=== PATIENT | female | born 1990 | race Caucasian/White ===

== ENCOUNTER → 2018-04-26 15:53 | Outpatient (CLI) | payer BC, SELFPAY ==
[2018-04-26 15:00] VITALS: BMI 29.0
[2018-04-26 17:28] LABS: Absolute Lymphocyte Count 1.35 X10^3/ul (0.83-4.51); Absolute Neutrophil Count 8.5 X10^3/uL (2.0-7.7); Basophil# 0.01 X10^3/uL; Basophil% 0.1 % (0-1); Eosinophil# 0.05 X10^3/uL; Eosinophils% 0.5 % (0-5); Hematocrit 34.6 % (37-47); Hemoglobin 11.5 g/dl (12.0-15.0); Lymphocyte # 1.35 X10^3/ul (4.0); Lymphocyte % 12.9 % (19-41); Mean Corp Hgb Conc 33.2 g/gl (32-36); Mean Corpuscular Hgb 32.8 pg (27.0-32.0); Mean Corpuscular Volume 98.6 fL (81-99); Mean Platelet Vol. 12.1 fl (6.2-12.0); Monocyte# 0.49 X10^3/uL; Monocyte% 4.7 % (0-10); Neutrophil # 8.52 X10^3/uL (2.7-7.7); Neutrophil % 81.3 % (47-70); Platelet Count 163 K/mm3 (150-450); RBC Distribution Width CV 12.2 % (11.6-14.6); RBC Distribution Width SD 41.2 fl (35.1-43.9); Red Blood Count 3.51 M/mm3 (4.2-5.4); White Blood Count 10.5 K/mm3 (4.4-11.0)
[2018-04-26 17:31] LABS: POSITIVE COUNT NO; POSITIVE DIFFERENTIAL NO; POSITIVE MORPHOLOGY NO
[2018-04-26 17:44] LABS: Glucose Challenge Gest 1H 50g 108 mg/dL (70-140)
== END ==
PROVIDERS: Referring Provider Obstetrics & Gynecology; Visit Provider Obstetrics & Gynecology
DX: Z34.90 Encounter for supervision of normal pregnancy, unspecified, unspecified trimester (principal)
CPT/HCPCS: 36415; 82950; 85025; 86850; 86900

== ENCOUNTER → 2018-07-03 15:41 | Outpatient (CLI) | payer BC, SELFPAY ==
[2018-06-28 15:05] VITALS: BMI 29.9
--- NOTE | 2018-07-03 15:46 | US_ITS ---
STUDY: SECOND AND THIRD TRIMESTER OBSTETRICAL ULTRASOUND - LIMITED REASON FOR EXAM: Female, 27 years old. dating. LMP: Unknown. PRIOR ULTRASOUND: None. TECHNIQUE: Transabdominal TECHNICAL QUALITY: Adequate. FINDINGS: There is a single intrauterine fetus. The fetus is in a cephalic presentation. There is demonstrated cardiac activity with a heart rate of 128 bpm. There is a normal amniotic fluid volume. The largest amniotic fluid pocket measures 3.2 cm. The amniotic fluid index (MATHEUS) is 13.9 cm. The placenta is anterior in location and is not low lying. There are Grade 2 placental changes. The cervix measures 2.5 cm in length. BIOMETRY: BPD: 8.9 cm: 36 weeks, 0 days HC: 32.9 cm: 37 weeks, 3 days AC: 31.8 cm: 35 weeks, 6 days FL: 7.2 cm: 37 weeks, 0 days age by current US: 36 weeks, 4 days. YESSENIA by current US: July 27, 2018. Estimated weight: 2888 grams, +/- 422 grams, 26 percentile. US/OB Limited With Biometrics IMPRESSION: Single intrauterine gestation 36 weeks 4 days with estimated due date July 27, 2018. Estimated weight 2888 g. Electronically Signed: Stefan Nelson MD at 18:11 EDT , Service support ,
== END ==
PROVIDERS: Referring Provider Obstetrics & Gynecology; Visit Provider Obstetrics & Gynecology
DX: O26.849 Uterine size-date discrepancy, unspecified trimester (principal); Z3A.00 Weeks of gestation of pregnancy not specified
CPT/HCPCS: 76816

== ENCOUNTER 2018-07-21 03:52 | Outpatient (CLI) | payer BC, SELFPAY ==
[2018-07-19 15:08] VITALS: BMI 29.9
[2018-07-21 05:00] VITALS: BMI 30.7
--- NOTE | 2018-07-21 21:28 | OB.TRI.PN ---
Progress Notes Date of Service: 07/21/18 Progress Note: co contractions 2 cm dilated no cervical cahnge fht 130 moderate variability reactive no decels cat I tracing. toco irregular a/p false labor reactive nst dc home
[2020-06-25 02:41] LABS: ROM Internal Control Test YES-OK TO RESULT pt. (Internal QC)
[2020-06-25 02:42] LABS: ROM Patient Test POSITIVE (Negative)
== END 2018-07-21 05:30 | disposition home or self-care (01) ==
LOC: WPOUT 04:22 → WP 04:23
PROVIDERS: Obstetrics & Gynecology; Referring Provider Obstetrics & Gynecology; Visit Provider Obstetrics & Gynecology
DX: O47.9 False labor, unspecified (principal); Z3A.00 Weeks of gestation of pregnancy not specified
CPT/HCPCS: 59025; 59050; 84112; 99218; G0378

== ENCOUNTER 2018-07-21 16:30 | Inpatient (IN) | payer BC, SELFPAY ==
[2018-07-21 05:00] VITALS: BMI 30.7
[2018-07-21] MEDS: Lactated Ringers 1,000 ML 50 ML IV ×2 (17:00→20:08)
[2018-07-21 17:01] VITALS: BMI 30.4
[2018-07-21 17:18] LABS: Absolute Lymphocyte Count 1.87 X10^3/ul (0.83-4.51); Absolute Neutrophil Count 11.4 X10^3/uL (2.0-7.7); Basophil# 0.02 X10^3/uL; Basophil% 0.1 % (0-1); Eosinophil# 0.07 X10^3/uL; Eosinophils% 0.5 % (0-5); Hematocrit 37.8 % (37-47); Hemoglobin 13.2 g/dl (12.0-15.0); Lymphocyte # 1.87 X10^3/ul (4.0); Mean Corp Hgb Conc 34.9 g/gl (32-36); Mean Corpuscular Hgb 32.5 pg (27.0-32.0); Mean Corpuscular Volume 93.1 fL (81-99); Mean Platelet Vol. 11.4 fl (6.2-12.0); Monocyte# 0.94 X10^3/uL; Monocyte% 6.6 % (0-10); Neutrophil # 11.38 X10^3/uL (2.7-7.7); Neutrophil % 79.4 % (47-70); Platelet Count 173 K/mm3 (150-450); RBC Distribution Width CV 12.9 % (11.6-14.6); RBC Distribution Width SD 43.4 fl (35.1-43.9); Red Blood Count 4.06 M/mm3 (4.2-5.4); White Blood Count 14.3 K/mm3 (4.4-11.0)
[2018-07-21 17:22] LABS: POSITIVE COUNT NO; POSITIVE DIFFERENTIAL NO; POSITIVE MORPHOLOGY NO
--- NOTE | 2018-07-21 17:46 | PCM.HP.OB ---
- Problem List (1) Active labor at term Status: Acute (2) GBS (group B streptococcus) UTI complicating Status: Acute Qualifiers: (3) Rh negative status during , third trimester, single gestation Status: Acute Comment: rhogam given at 28 weeks (4) Anxiety during Status: Acute Comment: no meds (5) Supervision of normal Status: Acute Qualifiers: Comment: PRR YESSENIA 07/20/18 girl PC Lara Fidel Scruggs (6) Status: Acute Qualifiers: Comment: Sequential screen negative. carrier screening offered. MFM Anatomy US normal. History Date of Admission: 07/21/18 Final YESSENIA: 07/20/18 Gestational age: 40 Weeks and 1 Days History of this : This is a 27 year-old, at 40 weeks gestational age presents IAL 5 cm dilated with regular ctx. she has been uncomplicated this . Allergies No Known Allergies Allergy (Verified 07/21/18 04:54) Home Medications: Home Medications docosahexanoic acid 200 mg capsule 200 mg PO DAILY cap 03/25/18 Smoking Status: Former smoker Alcohol: None Number of Fetus(es): 1 Heart Tracin moderate variability reactive no decelerations category I tracing [place]: regular History Past Pregnancies: Past Pregnancies previous term Labs: Mom's Labs & Results 07/21/18 07/21/18 17:00 17:00 WBC 14.3 H RBC 4.06 L Hgb 13.2 Hct 37.8 MCV 93.1 MCH 32.5 H MCHC 34.9 RDW 12.9 RDW Differential 43.4 Plt Count 173 MPV 11.4 Immature Gran % (Auto) 0.400 Neut % (Auto) 79.4 H Lymph % (Auto) 13.0 L [place] % (Auto) 6.6 Eos % (Auto) 0.5 Baso % (Auto) 0.1 Absolute Neuts (auto) 11.4 H Absolute Lymphs (auto) 1.87 Total Counted Not Reportable Blood Type Pending Antibody Screen Pending Course Did the patient receive Yes care? Labs Blood Type: A RH: NEGATIVE RPR/VDRL/Syphilis Nonreactive Rubella status Immune HbSAg Negative Date Done: 12/20/17 Chlamydia Not Done Gonorrhea Not Done HIV/AIDS Non-Reactive Group B Strep: Positive Other Lab Procedures/Results/ Gonorrhea and Chlamydia Comments: Current Obstetrical History Gestational Diabetes No Incompetent Cervix No Infertility No IUGR No Macrosomia No Hypertension/Pre-eclampsia No Placenta Previa/Abruption No PTL/PROM No Uterine anomaly No Oligohydramnios No Polyhydramnios No Multiple gestation No Past Medical History Asthma No Diabetes No Hypertension No Heart disease No Mitral valve prolapse Yes: Minor; Under observation Neurologic/Seizure disorder/ No Migraines Kidney disease No Liver disease No Varicosities No Clotting disorders/Hx of DVT No Thyroid Dysfunction No Other medical diseases No Psychiatric disorders Yes: Anxiety; untreated Major trauma No Abnormal PAP smear No Sleep apnea No Mammogram in the last 2 years No Social History Marital Status: Alleged father Fidel Hx Smoking No Smoking Status Former smoker Expected Delivery Method: Spontaneous Vaginal Review of Systems Constitutional: Denies: Fever, Malaise Eyes: Denies: Blurred vision, Vision Change HEENT: Denies: Head Aches, Visual Changes Cardiovascular: Denies: Chest Pain, Palpitations Respiratory: Denies: Cough, Shortness of Breath, Wheezing Gastrointestinal: Reports: Abdominal Pain. Denies: Diarrhea, Nausea, Vomiting Genitourinary: Denies: Dysuria, Hematuria Musculoskeletal: Denies: Joint Pain, Muscle pain Skin: Denies: Lesions, Rash Neurological: Denies: Blurred vision, Focal weakness, Headaches Psychiatric: Denies: Anxiety, Depression Endocrine: Denies: Heat/ Cold Intolerance Hematologic/ Lymphatic: Denies: Easy Bruising, Easy Bleeding Physical Exam General: Alert, Cooperative, No apparent distress HEENT: Atraumatic, Normocephalic. Negative for: Thyromegaly, Lymphadenopathy Cardiovascular: Regular rate Lungs: Normal air movement Abdomen: Soft, Non Tender, Gravid Neurological: Deep Tendon Reflexes 2+/4 and Symmetrical, Neuro grossly intact. Negative for: Clonus INS[employer]ANCE OPERATIONS REP: Normal external genitalia. Negative for: Vulvar lesions Estimated gestational size: Appropriate for gestational size Presentation: Cephalic Cervix Dilation (cm): 5 Assessment/Plan All Active Problems (Last Reviewed 07/19/18 @ 15:08 by Suzette Umana) Active labor at term (Acute) GBS (group B streptococcus) UTI complicating (Acute) Rh negative status during , third trimester, single gestation (Acute) Anxiety during (Acute) Supervision of normal (Acute) (Acute) This is a 27 year-old, at 40 weeks gestational age presents IAL Patient presents IAL, plan expectant management for , pitocin/AROM PRN if needed. Pain management: plans epidural. GBS positive plan IV PCN. Management of any complications: none I have reviewed the [facility] and made any clinically relevant updates.
--- NOTE | 2018-07-21 17:50 | HP.PCM_ITS ---
- Problem List (1) Active labor at term Status: Acute (2) GBS (group B streptococcus) UTI complicating Status: Acute Qualifiers: (3) Rh negative status during , third trimester, single gestation Status: Acute Comment: rhogam given at 28 weeks (4) Anxiety during Status: Acute Comment: no meds (5) Supervision of normal Status: Acute Qualifiers: Comment: PRR YESSENIA 07/20/18 girl PC Lara Fidel Scruggs (6) Status: Acute Qualifiers: Comment: Sequential screen negative. carrier screening offered. MFM Anatomy US normal. History Date of Admission: 07/21/18 Final YESSENIA: 07/20/18 Gestational age: 40 Weeks and 1 Days History of this : This is a 27 year-old, at 40 weeks gestational age presents IAL 5 cm dilated with regular ctx. she has been uncomplicated this . Allergies No Known Allergies Allergy (Verified 07/21/18 04:54) Home Medications: Home Medications docosahexanoic acid 200 mg capsule 200 mg PO DAILY cap 03/25/18 Smoking Status: Former smoker Alcohol: None Number of Fetus(es): 1 Heart Tracin moderate variability reactive no decelerations category I tracing [place]: regular History Past Pregnancies: Past Pregnancies previous term Labs: Mom's Labs & Results 07/21/18 07/21/18 17:00 17:00 WBC 14.3 H RBC 4.06 L Hgb 13.2 Hct 37.8 MCV 93.1 MCH 32.5 H MCHC 34.9 RDW 12.9 RDW Differential 43.4 Plt Count 173 MPV 11.4 Immature Gran % (Auto) 0.400 Neut % (Auto) 79.4 H Lymph % (Auto) 13.0 L [place] % (Auto) 6.6 Eos % (Auto) 0.5 Baso % (Auto) 0.1 Absolute Neuts (auto) 11.4 H Absolute Lymphs (auto) 1.87 Total Counted Not Reportable Blood Type Pending Antibody Screen Pending Course Did the patient receive Yes care? Labs Blood Type: A RH: NEGATIVE RPR/VDRL/Syphilis Nonreactive Rubella status Immune HbSAg Negative Date Done: 12/20/17 Chlamydia Not Done Gonorrhea Not Done HIV/AIDS Non-Reactive Group B Strep: Positive Other Lab Procedures/Results/ Gonorrhea and Chlamydia Comments: Current Obstetrical History Gestational Diabetes No Incompetent Cervix No Infertility No IUGR No Macrosomia No Hypertension/Pre-eclampsia No Placenta Previa/Abruption No PTL/PROM No Uterine anomaly No Oligohydramnios No Polyhydramnios No Multiple gestation No Past Medical History Asthma No Diabetes No Hypertension No Heart disease No Mitral valve prolapse Yes: Minor; Under observation Neurologic/Seizure disorder/ No Migraines Kidney disease No Liver disease No Varicosities No Clotting disorders/Hx of DVT No Thyroid Dysfunction No Other medical diseases No Psychiatric disorders Yes: Anxiety; untreated Major trauma No Abnormal PAP smear No Sleep apnea No Mammogram in the last 2 years No Social History Marital Status: Alleged father Fidel Hx Smoking No Smoking Status Former smoker Expected Delivery Method: Spontaneous Vaginal Review of Systems Constitutional: Denies: Fever, Malaise Eyes: Denies: Blurred vision, Vision Change HEENT: Denies: Head Aches, Visual Changes Cardiovascular: Denies: Chest Pain, Palpitations Respiratory: Denies: Cough, Shortness of Breath, Wheezing Gastrointestinal: Reports: Abdominal Pain. Denies: Diarrhea, Nausea, Vomiting Genitourinary: Denies: Dysuria, Hematuria Musculoskeletal: Denies: Joint Pain, Muscle pain Skin: Denies: Lesions, Rash Neurological: Denies: Blurred vision, Focal weakness, Headaches Psychiatric: Denies: Anxiety, Depression Endocrine: Denies: Heat/ Cold Intolerance Hematologic/ Lymphatic: Denies: Easy Bruising, Easy Bleeding Physical Exam General: Alert, Cooperative, No apparent distress HEENT: Atraumatic, Normocephalic. Negative for: Thyromegaly, Lymphadenopathy Cardiovascular: Regular rate Lungs: Normal air movement Abdomen: Soft, Non Tender, Gravid Neurological: Deep Tendon Reflexes 2+/4 and Symmetrical, Neuro grossly intact. 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 Negative for: Vulvar lesions Estimated gestational size: Appropriate for gestational size Presentation: Cephalic Cervix Dilation (cm): 5 Assessment/Plan All Active Problems (Last Reviewed 07/19/18 @ 15:08 by Suzette Umana) Active labor at term (Acute) GBS (group B streptococcus) UTI complicating (Acute) Rh negative status during , third trimester, single gestation (Acute) Anxiety during (Acute) Supervision of normal (Acute) (Acute) This is a 27 year-old, at 40 weeks gestational age presents IAL Patient presents IAL, plan expectant management for , pitocin/AROM PRN if needed. Pain management: plans epidural. GBS positive plan IV PCN. Management of any complications: none I have reviewed the [facility] and made any clinically relevant updates.
[2018-07-21 19:59] LABS: Chlamydia Trachomatis by PCR Negative (Negative); Neisserai gonorrhoeae by PCR Negative (Negative); Probe Check PASS; Sample Adequacy Control PASS; Specimen Processing Control PASS
[2018-07-21] MEDS: fentaNYL-bupivacaine (epidural) 100 ML BAG EPIDURAL (20:15)
--- NOTE | 2018-07-21 21:32 | PCM.OPRPT ---
Problem List (1) Active labor at term Status: Acute (2) GBS (group B streptococcus) UTI complicating Status: Acute Qualifiers: (3) Rh negative status during , third trimester, single gestation Status: Acute Comment: rhogam given at 28 weeks (4) Anxiety during Status: Acute Comment: no meds (5) Supervision of normal Status: Acute Qualifiers: Comment: PRR YESSENIA 07/20/18 girl PC Lara Fidel Scruggs (6) Status: Acute Qualifiers: Comment: Sequential screen negative. carrier screening offered. MFM Anatomy US normal. Report of Operation Date of Procedure: 07/21/18 Pre-Operative Diagnosis: ial Vaginal Delivery Maternal Presentation: Active Labor Amniotic Membrane Rupture Type: Artificial Amniotic Fluid Description: Clear Final YESSENIA: 07/20/18 Gestational age: 40 Weeks and 1 Days Date of Procedure: 07/21/18 Pre-Operative Diagnosis: ial Post-Operative Diagnosis: same Surgery/ Procedure Performed: Spontaneous Vaginal Delivery Type of Anesthesia: Epidural Description of Procedure: Patient began pushing and delivered the head in the CONCHITA presentation. The head was delivered atraumatically and a loose nuchal cord ?1 was identified and easily reduced over the infant's head. The anterior and posterior shoulders delivered without complication followed by the rest of the infant and the infant was placed on the maternal abdomen. Delayed cord clamping was employed for approximately 60 seconds. Cord was clamped and cut and gentle traction was applied to the cord and the placenta delivered spontaneously immediately following it was noted to be intact with three-vessel cord. The perineum and vagina were inspected and noted to have no laceration. EBL was 200 cc. Patient and tolerated delivery well. Presentation: CONCHTIA Placental Delivery Description: Spontaneous Placenta Disposition: [facility] Cord Vessel Description: 3 Vessels Cord Entanglement: Around neck x 1, loose Drain: Lewis to straight drain Estimated Blood Loss: 200 A gender: Female (1 minute): 8 (5 minute): 9 Episiotomy Description: None Laceration: None Medications given after delivery: IV Pitocin Complications: None
[2018-07-21] MEDS: Oxytocin 30 units/NS 500 ml 30 UNITS/500 ML IV.SOLN 334 UNITS IV (21:56)
[2018-07-21] MEDS: Oxytocin 30 units/NS 500 ml 30 UNITS/500 ML IV.SOLN 167 UNITS IV (22:29)
[2018-07-21] MEDS: 0.9% Saline Lock 10 ML Syringe IV (23:38)
[2018-07-22 03:26] VITALS: BP 114/76; PULSE 86; RESP 16; TEMP 36.9; O2SAT 97
--- NOTE | 2018-07-22 07:41 | PCM.PN.OB ---
Patient Problems: Active and Suspected Problems (Last Reviewed 07/19/18 @ 15:08 by Suzette Umana) Active labor at term (Acute) Subjective: doing well no complaints pain controlled no CP SOB N V ambulating well tolerating po lochia moderate, going well - Physical Exam General: Alert, Oriented x3 Abdomen: Soft, Non Tender, - - FF below U Vital Signs Temp Pulse Resp BP Pulse Ox 98.5 F 86 16 114/76 97 07/22/18 03:26 07/22/18 03:26 07/22/18 03:26 07/22/18 03:26 07/22/18 03:26 Oxygen Delivery Method Room Air Weight: 177 lb 6 oz Body Mass Index (BMI) 30.4 Intake and Output for Last 24 Hours 07/20/18 07/21/18 07/22/18 23:59 23:59 23:59 Intake Total 2349 / 2349 Output Total 700 / 700 1100 / 1100 Balance 1649 / 1649 -1100 / -1100 Laboratory Tests Past 24 Hrs 07/21/18 07/21/18 07/21/18 17:00 17:00 18:00 WBC 14.3 H RBC 4.06 L Hgb 13.2 Hct 37.8 MCV 93.1 MCH 32.5 H MCHC 34.9 RDW 12.9 RDW Differential 43.4 Plt Count 173 MPV 11.4 Immature Gran % (Auto) 0.400 Neut % (Auto) 79.4 H Lymph % (Auto) 13.0 L [place] % (Auto) 6.6 Eos % (Auto) 0.5 Baso % (Auto) 0.1 Absolute Neuts (auto) 11.4 H Absolute Lymphs (auto) 1.87 Total Counted Not Reportable Chlam trachomat DNA PCR Negative N.gonorrhoeae DNA (PCR) Negative Blood Type A NEGATIVE Antibody Screen NEGATIVE Screen Baby's Blood Type Baby's SHAWNA 07/22/18 00:50 WBC RBC Hgb Hct MCV MCH MCHC RDW RDW Differential Plt Count MPV Immature Gran % (Auto) Neut % (Auto) Lymph % (Auto) [place] % (Auto) Eos % (Auto) Baso % (Auto) Absolute Neuts (auto) Absolute Lymphs (auto) Total Counted Chlam trachomat DNA PCR N.gonorrhoeae DNA (PCR) Blood Type Antibody Screen Screen NEGATIVE Baby's Blood Type O POSITIVE Baby's [place]AWNA NEGATIVE Medical Necessity - Tobacco Use Smoking Status: Former smoker Assessment/Plan All Active Problems (Last Reviewed 07/19/18 @ 15:08 by Suzette Umana) Active labor at term (Acute) GBS (group B streptococcus) UTI complicating (Acute) Rh negative status during , third trimester, single gestation (Acute) Anxiety during (Acute) Supervision of normal (Acute) (Acute) s/p PPD # 1 1. routine post delivery care 2. breast feeding- support given 3. rh positive 4. rubella immune
[2018-07-22 08:34] VITALS: BP 100/73; PULSE 86; RESP 18; TEMP 36.7
[2018-07-22 12:50] VITALS: BP 108/69; PULSE 86; RESP 18; TEMP 36.2
[2018-07-22 16:58] VITALS: BP 113/68; PULSE 68; RESP 18; TEMP 36.6
[2018-07-22] MEDS: Naproxen 250 MG Tablet 500 MG PO (17:05)
[2018-07-22] MEDS: Senna/Docusate Sodium 1 Tablet PO (17:05)
[2018-07-22 20:25] VITALS: BP 113/72; PULSE 75; RESP 16; TEMP 37.2; O2SAT 98
[2018-07-23 01:50] VITALS: BP 110/74; PULSE 67; RESP 16; TEMP 37.1; O2SAT 98
--- NOTE | 2018-07-23 06:40 | PCM.PN.OB ---
Patient Problems: Active and Suspected Problems (Last Reviewed 07/19/18 @ 15:08 by Suzette Umana) Active labor at term (Acute) Subjective: doing well no complaints pain controlled no CP SOB N V ambulating well tolerating po lochia moderate, going well - Physical Exam Vital Signs Temp Pulse Resp BP Pulse Ox 98.7 F 67 16 110/74 98 07/23/18 01:50 07/23/18 01:50 07/23/18 01:50 07/23/18 01:50 07/23/18 01:50 Oxygen Delivery Method Room Air Weight: 177 lb 6 oz Body Mass Index (BMI) 30.4 Intake and Output for Last 24 Hours 07/21/18 07/22/18 07/23/18 23:59 23:59 23:59 Intake Total 2349 / 2349 Output Total 700 / 700 1100 / 1100 Balance 1649 / 1649 -1100 / -1100 Medical Necessity - Tobacco Use Smoking Status: Former smoker Assessment/Plan All Active Problems (Last Reviewed 07/19/18 @ 15:08 by Suzette Umana) Active labor at term (Acute) GBS (group B streptococcus) UTI complicating (Acute) Rh negative status during , third trimester, single gestation (Acute) Anxiety during (Acute) Supervision of normal (Acute) (Acute) s/p PPD # 2 1. routine post delivery care 2. breast feeding- support given 3. rh negative 4. rubella immune
--- NOTE | 2018-07-23 06:41 | DCINST_ITS ---
Discharge Diet: No Restrictions Discharge Activity: Return to Normal Activity, May not drive while taking narcotic pain medications., May Shower May resume sexual activity in: 4-6 weeks Call your doctor if your incision/area has: Continuous Slow Oozing, Sudden Increased Bleeding, Increased Pain/ Swelling, Increased Redness, Foul Smelling Discharge Additional Instructions: If you experience any of the following, contact your healthcare provider. * Bleeding that soaks a pad every hour for 2 hours * Fever 100.4 or higher * Unrelieved incision or abdominal pain * Swelling, redness, discharge or bleeding from your incision or episiotomy site * Your incision begins to separate * Problems urinating (including inability to urinate or burning while urinating). * Visual changes * Severe headache * Flu-like symptoms * Pain or redness in one of both of your breasts * Pain, warmth, tenderness or swelling in your legs, especially the calf area * Frequent nausea and vomiting * Symptoms of depression or anxiety If you experience any of the following, call 911 or go to the nearest Emergency Room. * Chest pain * Problems breathing * Seizure activity * Partial or complete paralysis of a body part, slurred speech, weakness or drooping of the face, or a sudden inability to walk or hold your balance Allergies/Adverse Reactions: Allergies No Known Allergies Allergy (Verified 07/21/18 04:54) Medications to take at Discharge docosahexanoic acid 200 mg capsule 200 mg PO DAILY cap 03/25/18 Please Follow Up With: Clair Denson MD - [phone] When: Call to make an appointment with your doctor in 6 weeks. If you had elevated Blood pressure or 4th degree laceration you will need to be seen in 2 weeks. Primary Care Physician: Care Physician,No Primary [Primary Care Provider] - Test Results: Test results from this visit will be discussed in further detail at your follow- up appointment, if applicable.
--- NOTE | 2018-07-23 06:41 | PCM.DCVAG ---
Discharge Diet: No Restrictions Discharge Activity: Return to Normal Activity, May not drive while taking narcotic pain medications., May Shower May resume sexual activity in: 4-6 weeks Call your doctor if your incision/area has: Continuous Slow Oozing, Sudden Increased Bleeding, Increased Pain/ Swelling, Increased Redness, Foul Smelling Discharge Additional Instructions: If you experience any of the following, contact your healthcare provider. Bleeding that soaks a pad every hour for 2 hours Fever 100.4 or higher Unrelieved incision or abdominal pain Swelling, redness, discharge or bleeding from your incision or episiotomy site Your incision begins to separate Problems urinating (including inability to urinate or burning while urinating). Visual changes Severe headache Flu-like symptoms Pain or redness in one of both of your breasts Pain, warmth, tenderness or swelling in your legs, especially the calf area Frequent nausea and vomiting Symptoms of depression or anxiety If you experience any of the following, call 911 or go to the nearest Emergency Room. Chest pain Problems breathing Seizure activity Partial or complete paralysis of a body part, slurred speech, weakness or drooping of the face, or a sudden inability to walk or hold your balance Allergies/Adverse Reactions: Allergies No Known Allergies Allergy (Verified 07/21/18 04:54) Medications to take at Discharge docosahexanoic acid 200 mg capsule 200 mg PO DAILY cap 03/25/18 Please Follow Up With: Clair Denson MD - [phone] When: Call to make an appointment with your doctor in 6 weeks. If you had elevated Blood pressure or 4th degree laceration you will need to be seen in 2 weeks. Primary Care Physician: Care Physician,No Primary [Primary Care Provider] - Test Results: Test results from this visit will be discussed in further detail at your follow-up appointment, if applicable.
[2018-07-23 09:53] VITALS: BP 110/57; PULSE 70; RESP 16; TEMP 36.6
== END 2018-07-23 10:10 | disposition home or self-care (01) | DRG 807 ==
PROVIDERS: Admitting Provider Obstetrics & Gynecology; Visit Provider Obstetrics & Gynecology
DX: O69.81X0 Labor and delivery complicated by cord around neck, without compression, not applicable or unspecified (principal); Z37.0 Single live birth; O99.824 Streptococcus B carrier state complicating childbirth; O26.893 Other specified pregnancy related conditions, third trimester; Z87.891 Personal history of nicotine dependence; Z3A.40 40 weeks gestation of pregnancy; Z67.91 Unspecified blood type, Rh negative; Z87.440 Personal history of urinary (tract) infections
CPT/HCPCS: 59025; 59050; 85025; 85461; 86850; 86900; 87491; 87591; 90384; 99218; J7120; A4216; G0378; J2790

== ENCOUNTER → 2018-09-06 17:19 | Outpatient (CLI) | payer BC, SELFPAY ==
[2018-09-06 15:15] VITALS: BMI 26.9
[2018-09-12 12:44] LABS: HPV Reflexed? NOT INDICATED
== END ==
PROVIDERS: Referring Provider Obstetrics & Gynecology; Visit Provider Obstetrics & Gynecology
DX: Z12.4 Encounter for screening for malignant neoplasm of cervix (principal)
CPT/HCPCS: 87624; 88175; G0145

== ENCOUNTER → 2019-11-06 11:01 | Outpatient (CLI) | payer BC, SELFPAY ==
[2019-11-06 10:03] VITALS: BMI 26.9
[2019-11-06 11:21] LABS: Absolute Lymphocyte Count 1.52 X10^3/uL (0.83-4.51); Absolute Neutrophil Count 4.9 X10^3/uL (2.0-7.7); Basophil# 0.02 X10^3/uL; Basophil% 0.3 % (0-1); Eosinophil# 0.06 X10^3/uL; Eosinophils% 0.9 % (0-5); Hematocrit 39.7 % (37-47); Hemoglobin 13.4 g/dL (12.0-15.0); Lymphocyte # 1.52 X10^3/ul (4.0); Lymphocyte % 21.7 % (19-41); Mean Corp Hgb Conc 33.8 g/dL (32-36); Mean Corpuscular Hgb 32.1 pg (27.0-32.0); Mean Corpuscular Volume 95.2 fL (81-99); Mean Platelet Vol. 11.4 fl (6.2-12.0); Monocyte# 0.46 X10^3/uL; Monocyte% 6.6 % (0-10); NRBC Flagged by Analyzer 0 % (0-5); Neutrophil # 4.92 X10^3/uL (2.7-7.7); Neutrophil % 70.2 % (47-70); Platelet Count 224 K/mm3 (150-450); RBC Distribution Width CV 11.2 % (11.6-14.6); RBC Distribution Width SD 39.3 fl (35.1-43.9); Red Blood Count 4.17 M/mm3 (4.2-5.4)
[2019-11-06 12:37] LABS: HIV - WCH Non-Reactive (Nonreactive); Hepatitis B Surface Antigen Non-Reactive (Nonreactive); Hepatitis C Antibody Non-Reactive (Nonreactive); Rubella IgG 97.7 IU/mL
[2019-11-06 15:42] LABS: Amphetamine Urine VISTA NEGATIVE (<1000 ng/mL); Barbiturate Urine VISTA NEGATIVE (< 200 ng/mL); Benzodiazepine Urine VISTA NEGATIVE (< 200 ng/mL); Cocaine Urine VISTA NEGATIVE (< 300 ng/mL); Ecstacy Urine VISTA NEGATIVE (< 500 ng/mL); Methadone Urine VISTA NEGATIVE (< 300 ng/mL); PCP Urine VISTA NEGATIVE (< 25 ng/mL); THC Urine VISTA NEGATIVE (< 50 ng/mL); Vista UDS pH Range 6
[2019-11-06 19:00] LABS: Chlamydia Trachomatis by PCR Negative (Negative); Neisserai gonorrhoeae by PCR Negative (Negative); Probe Check PASS; Sample Adequacy Control PASS; Specimen Processing Control PASS
[2019-11-13 05:22] LABS: Rapid Plasmin Reagin (RPR) NONREACTIVE (NONREACTIVE)
== END ==
PROVIDERS: Referring Provider Obstetrics & Gynecology; Visit Provider Obstetrics & Gynecology
DX: Z34.80 Encounter for supervision of other normal pregnancy, unspecified trimester (principal)
CPT/HCPCS: 36415; 80307; 85025; 86592; 86703; 86762; 86803; 86850; 86900; 86901; 87086; 87340; 87491; 87591

== ENCOUNTER → 2019-12-05 | Outpatient (CLI) | payer BC, SELFPAY ==
[2019-12-05 16:01] VITALS: BMI 26.6
[2019-12-05 18:01] LABS: NATERA MAILED SPECIMEN
== END | disposition home or self-care (01) ==
LOC: LABSPEC 16:47 → LAB 17:06
PROVIDERS: Referring Provider Obstetrics & Gynecology; Visit Provider Obstetrics & Gynecology
DX: O09.521 Supervision of elderly multigravida, first trimester (principal); Z3A.00 Weeks of gestation of pregnancy not specified
CPT/HCPCS: 36415

== ENCOUNTER → 2020-04-09 15:19 | Outpatient (CLI) | payer BC, SELFPAY ==
[2020-03-26 15:50] VITALS: BMI 29.9
[2020-04-09 17:28] LABS: Absolute Lymphocyte Count 1.66 X10^3/uL (0.83-4.51); Absolute Neutrophil Count 8.5 X10^3/uL (2.0-7.7); Basophil# 0.02 X10^3/uL; Basophil% 0.2 % (0-1); Eosinophil# 0.13 X10^3/uL; Eosinophils% 1.2 % (0-5); Hematocrit 33.8 % (37-47); Hemoglobin 11.5 g/dL (12.0-15.0); Lymphocyte # 1.66 X10^3/ul (4.0); Mean Corpuscular Volume 97.1 fL (81-99); Mean Platelet Vol. 12.1 fl (6.2-12.0); Monocyte# 0.67 X10^3/uL; Monocyte% 6.1 % (0-10); NRBC Flagged by Analyzer 0 % (0-5); Neutrophil # 8.49 X10^3/uL (2.7-7.7); Neutrophil % 76.6 % (47-70); Platelet Count 183 K/mm3 (150-450); RBC Distribution Width CV 11.8 % (11.6-14.6); RBC Distribution Width SD 41.4 fl (35.1-43.9); Red Blood Count 3.48 M/mm3 (4.2-5.4); White Blood Count 11.1 K/mm3 (4.4-11.0)
[2020-04-09 17:50] LABS: Glucose Challenge Gest 1H 50g 89 mg/dL (70-140)
== END ==
PROVIDERS: Referring Provider Obstetrics & Gynecology; Visit Provider Obstetrics & Gynecology
DX: O26.899 Other specified pregnancy related conditions, unspecified trimester (principal); Z67.91 Unspecified blood type, Rh negative; Z3A.00 Weeks of gestation of pregnancy not specified
CPT/HCPCS: 36415; 82950; 85025; 86850; 86900; 86901

== ENCOUNTER → 2020-06-03 16:27 | Outpatient (CLI) | payer BC, SELFPAY ==
[2020-06-03 15:51] VITALS: BMI 31.8
== END ==
PROVIDERS: Referring Provider Obstetrics & Gynecology; Visit Provider Obstetrics & Gynecology
DX: Z34.80 Encounter for supervision of other normal pregnancy, unspecified trimester (principal)
CPT/HCPCS: 87077; 87081; 87186

== ENCOUNTER → 2020-06-18 14:50 | Outpatient (CLI) | payer BC, SELFPAY ==
[2020-05-21 15:46] VITALS: BMI 30.9
[2020-06-17 16:22] VITALS: BMI 31.4
== END ==
PROVIDERS: Visit Provider Obstetrics & Gynecology
DX: Z34.90 Encounter for supervision of normal pregnancy, unspecified, unspecified trimester (principal)
CPT/HCPCS: 87635; C9803; U0002

== ENCOUNTER 2020-06-25 02:42 | Inpatient (IN) | payer BC, SELFPAY ==
[2020-06-24 15:54] VITALS: BMI 31.4
[2020-06-25] VITALS (51 sets, daily range): BP systolic 101–173; BP diastolic 52–105; PULSE 71–181; RESP 16–18; TEMP 36.6–38.3; O2SAT 85–100; BMI 31.3
[2020-06-25] MEDS: Lactated Ringers 1,000 ML 50 ML IV (03:00)
[2020-06-25 03:35] LABS: Absolute Lymphocyte Count 1.76 X10^3/uL (0.83-4.51); Absolute Neutrophil Count 6.9 X10^3/uL (2.0-7.7); Basophil# 0.01 X10^3/uL; Basophil% 0.1 % (0-1); Eosinophil# 0.09 X10^3/uL; Eosinophils% 0.9 % (0-5); Hematocrit 37.6 % (37-47); Hemoglobin 13.1 g/dL (12.0-15.0); Lymphocyte # 1.76 X10^3/ul (0.83-4.51); Lymphocyte % 18.5 % (19-41); Mean Corp Hgb Conc 34.8 g/dL (32-36); Mean Corpuscular Hgb 32.8 pg (27.0-32.0); Mean Corpuscular Volume 94.2 fL (81-99); Mean Platelet Vol. 12.7 fl (6.2-12.0); Monocyte# 0.73 X10^3/uL; Monocyte% 7.7 % (0-10); NRBC Flagged by Analyzer 0 % (0-5); Neutrophil # 6.86 X10^3/uL (2.7-7.7); Neutrophil % 72.4 % (47-70); Platelet Count 161 K/mm3 (150-450); RBC Distribution Width CV 12.3 % (11.6-14.6); RBC Distribution Width SD 42.5 fl (35.1-43.9); Red Blood Count 3.99 M/mm3 (4.2-5.4); White Blood Count 9.5 K/mm3 (4.4-11.0)
[2020-06-25] MEDS: Lactated Ringers 500 ML 999 ML IV (04:42)
[2020-06-25] MEDS: fentaNYL-bupivacaine (epidural) 100 ML BAG EPIDURAL (05:55)
[2020-06-25] MEDS: Oxytocin 30 units/NS 500 ml 30 UNITS/500 ML IV.SOLN 334 UNITS IV (06:37)
--- NOTE | 2020-06-25 06:45 | HP.PCM.OB_ITS ---
HPI - General General Date of Admission: 06/25/20 HPI Narrative SALVADOR CHONG, is a 29 F at 39 weeks gestation who presents in active labor. [facility] Medical History (Updated 06/25/20 @ 06:[address] Joanna Garcia MD) Anxiety Breast lump on right side at 10 o'clock position Mitral valve prolapse Rh negative state in antepartum period Home Medications docosahexaenoic acid 200 mg capsule 200 mg PO DAILY cap 03/25/18 [History Last Taken 06/24/20] Allergy/AdvReac Type Severity Reaction Status Date / Time No Known Allergies Allergy Verified 06/25/20 02:34 Family History Mother Lupus Grandmother Breast cancer Other Cancer Social History household members: family housing: house number of children: 2 Smoking Status: Former smoker second hand exposure: No alcohol intake: never substance use type: does not use caffeine: No what type of physical activity do you participate in: walking frequency: 3-4 times per week seatbelt use: always do you feel safe at home: Yes additional social history: - [employer]idel-[employer] 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 Date Name GA/Weeks Outcome Route Bth Weight Gen Labor Lgth Anesthesia [facility] Provider FOB 07/13/16 Lara 39 live - full term 6lbs 11oz Female 12 hours epidural [facility] Dr. Marcela Parra 07/21/18 Ashly 40 live - full term 8lbs 11oz Female epidural [facility] Delivery Date: 07/13/16 No issues during or delivery. Nydia Lee Delivery Date: 07/21/18 no complications Renate Lange Visit Details Expected Delivery Route/Plan Labor Preferences- CB/BF classes: no labor support person: Fidel labor intervention preferences: [] pain management options preferred: epidural if needed cut cord/dad catch: cord : yes PP control planned: [] discussed possible routes of delivery and associated risks: [] special requests: [] Plans flu vaccine:given tdap vaccine: 04/09 rhogam: 04/09 LARC form signed: declined movement and labor precautions reviewed. Problem list reviewed and updated with the most current plan of care details and appropriate orders placed. Relevant counseling for the gestational age provided. Continue routine care and follow up unless otherwise noted in visit notes/problem list details OB Flowsheet Initial Weight: 152 lb Date -?-?-?-?-?-?-?-?-?-?-?-?- EGA Weight BP Urine Prot -?-?-?-?-?-?-?-?-?-?-?-?- Glucose FHR FuHt Pres Dilation -?-?-?-?-?-?-?-?-?-?-?-?- Effaced St Visit Note 11/06/19 -?-?-?-?-?-?-?-?-?-?-?-?- 6w 4d 152 lb (+0 oz) -?-?-?-?-?-?-?-?-?-?--?-?- 120 -?-?-?-?-?-?-?-?-?-?-?-?- GP - CRL 8mm NOT consistent with LMP. 12/05/19 -?-?-?-?-?-?-?-?-?-?-?-?- 10w 5d 155 lb 6 oz (+3 lb 6 oz) 128/76 Negative -?-?-?-?-?-?-?-?-?-?-?-?- Negative 160 -?-?-?-?-?-?-?-?-?-?-?-?- SM- SM- no vb lof cramping gett ing nipt and carrier screen today 01/01/20 -?-?-?-?-?-?-?-?-?-?-?-?- 14w 4d 157 lb 4 oz (+5 lb 4 oz) Negative -?-?-?-?-?-?-?-?-?-?-?-?- Negative 155 -?-?-?-?-?-?-?-?-?-?-?-?- GP - no cramping or bleeding. Having gender reveal with siblings this weekend. Has not yet received call about anatomy scan - new order sent. 01/27/20 -?-?-?-?-?-?-?-?-?-?-?-?- 18w 2d 160 lb (+8 lb) 106/72 Negative -?-?-?-?-?-?-?-?-?-?-?-?- Negative 150 -?-?-?-?-?-?-?-?-?-?-?-?- SM- no vb lof cr amping 02/26/20 -?-?-?-?-?-?-?-?-?-?-?-?- 22w 4d 166 lb (+14 lb) 100/80 Negative -?-?-?-?-?-?-?-?-?-?-?-?- Negative 150 23 -?-?-?-?-?-?-?-?-?-?-?-?- Sm- no vb lof go od fm no regular ctx 03/26/20 -?-?-?-?-?-?-?-?-?-?-?-?- 26w 5d 174 lb 6 oz (+22 lb 6 oz) 116/76 Negative -?-?-?-?-?-?-?-?-?-?-?-?- Negative 150 26 -?-?-?-?-?-?-?-?-?-?-?-?- GP - no LOF, VB, DFM, ctx. GCT next visit. Going to cj with her daughters next week. 04/09/20 -?-?-?-?-?-?-?-?-?-?-?-?- 28w 5d 124/80 -?-?-?-?-?-?-?-?-?-?-?--?- 150 28 -?-?-?-?-?-?-?-?-?-?-?-?- SM- no vb lof go od fm no regular ctx cbc gct rhogam tdap today 04/23/20 -?-?-?-?-?-?-?-?-?-?-?-?- 30w 5d 178 lb (+26 lb) Negative -?-?-?-?-?-?-?-?-?-?-?-?- Negative 145 31 -?-?-?-?-?-?-?-?-?-?-?-?- SM- no vb lof go od fm no regular ctx 05/06/20 -?-?-?-?-?-?-?-?-?-?-?-?- 32w 4d 179 lb (+27 lb) 106/62 Negative -?-?-?-?-?-?-?-?-?-?-?-?- Negative 140 32 -?-?-?-?-?-?-?-?-?-?-?-?- SM- no vb lof go od fm n oregular ctx 05/21/20 -?-?-?-?-?-?-?-?-?-?-?-?- 34w 5d 180 lb 6 oz (+28 lb 6 oz) 114/82 Negative -?-?-?-?-?-?-?-?-?-?-?-?- Negative 140 34 -?-?-?-?-?-?-?-?-?-?-?-?- GP - No LOF, VB, ctx. Reports DFM over last few days. NST reactive. 06/03/20 -?-?-?-?-?-?-?-?-?-?-?-?- 36w 4d 185 lb 6 oz (+33 lb 6 oz) 130/80 Negative -?-?-?-?-?-?-?-?-?-?-?-?- Negative 140 35 Cephalic 1 -?-?-?-?-?-?-?-?-?-?-?-?- SM- no vb lof go od fm no regular ctx gbs done 06/10/20 -?-?-?-?-?-?-?-?-?-?-?-?- 37w 4d 183 lb 8 oz (+31 lb 8 oz) 118/86 Negative -?-?-?-?-?-?-?-?-?-?-?-?- Negative 144 36 Cephalic 1 -?-?-?-?-?-?-?-?-?-?-?-?- MH-NO VB, LOF. N o reg CTX. Good FM. 06/17/20 -?-?-?-?-?-?-?-?-?-?-?-?- 38w 4d 187 lb (+35 lb) 136/72 Negative -?-?-?-?-?-?-?-?-?-?-?-?- Negative 140 37 Cephalic 3 -?-?-?-?-?-?-?-?-?-?-?-?- Sm- no vb lof go od fm no regular ctx 06/24/20 -?-?-?-?-?-?-?-?-?-?-?-?- 39w 4d 187 lb (+35 lb) 116/78 Negative -?-?-?-?-?-?-?-?-?-?-?-?- Negative 145 39 Cephalic 4 -?-?-?-?-?-?-?-?-?-?-?-?- 70 -2 GP - no LO F, VB, DFM, ctx. Membranes swept today. 06/25/20 -?-?-?-?-?-?-?-?-?-?-?-?- 39w 5d 182 lb 9.6 oz (+30 lb 9.6 oz) 136/82 136/82 117/75 115/83 113/66 139/87 138/93 101/63 173/105 120/58 -?-?-?-?-?-?-?-?-?-?-?-?- 130 4 -?-?-?-?-?-?-?-?-?-?-?-?- 70 -2 GP - Admit hieu in active labor with SROM NST FHR Rate Baby A Baseline: 130 Variability:: Moderate Accelerations:: 15 x 15 Decelerations:: None NST Reactive:: Yes FHR Category:: Category I Uterine Activity:: q2-4 ROS Eyes Eyes: Reports systems reviewed and no addt'l complaints, except as documented ENT HEENT: Reports systems reviewed and no addt'l complaints, except as documented Cardiovascular Cardiovascular: Reports systems reviewed and no addt'l complaints, except as documented Respiratory/Chest Respiratory/Chest: Reports systems reviewed and no addt'l complaints, except as documented Gastrointestinal Gastrointestinal: Reports systems reviewed and no addt'l complaints, except as documented Genitourinary Genitourinary: Reports systems reviewed and no addt'l complaints, except as documented Musculoskeletal Musculoskeletal: Reports systems reviewed and no addt'l complaints, except as do cumented Integumentary Integumentary: Reports systems reviewed and no addt'l complaints, except as documented Neurologic Neurologic: Reports systems reviewed and no addt'l complaints, except as documented Psychiatric Psychiatric: Reports systems reviewed and no addt'l complaints, except as documented Endocrine Endocrinology: Reports systems reviewed and no addt'l complaints, except as documented Hematologic/Lymphatic Hematologic/Lymphatic: Reports systems reviewed and no addt'l complaints, except as documented Allergic/Immunologic Allergic/Immunologic: Reports systems reviewed and no addt'l complaints, except as documented Vital Signs Vital Signs Vital Signs: 06/25/20 02:15 06/25/20 02:16 06/25/20 02:18 Temperature 98.1 F Temperature Source Pulse Rate 108 H 94 Blood Pressure 136/82 H BP Systolic 136 BP Diastolic 82 Pulse Ox 98 06/25/20 02:22 06/25/20 02:30 06/25/20 04:11 Temperature 98.1 F Temperature Source Temporal Temporal Pulse Rate 108 H 94 Blood Pressure 136/82 H 117/75 BP Systolic 136 117 BP Diastolic 82 75 Pulse Ox 98 06/25/20 04:12 06/25/20 04:23 06/25/20 05:31 Temperature 98.2 F Temperature Source Pulse Rate 93 88 89 Blood Pressure 115/83 H BP Systolic 115 BP Diastolic 83 Pulse Ox 98 97 06/25/20 05:36 06/25/20 05:41 06/25/20 05:46 Temperature Temperature Source Pulse Rate 97 106 H 88 Blood Pressure BP Systolic BP Diastolic Pulse Ox 97 97 96 06/25/20 05:51 06/25/20 05:54 06/25/20 05:56 Temperature Temperature Source Pulse Rate 98 96 113 H Blood Pressure 113/66 BP Systolic 113 BP Diastolic 66 Pulse Ox 96 99 06/25/20 05:59 06/25/20 06:01 06/25/20 06:03 Temperature Temperature Source Pulse Rate 101 H 97 146 H Blood Pressure 139/87 H 138/93 H BP Systolic 139 138 BP Diastolic 87 93 Pulse Ox 100 06/25/20 06:06 06/25/20 06:11 06/25/20 06:14 Temperature Temperature Source Pulse Rate 117 H 97 136 H Blood Pressure 101/63 BP Systolic 101 BP Diastolic 63 Pulse Ox 98 99 06/25/20 06:16 06/25/20 06:25 06/25/20 06:26 Temperature Temperature Source Pulse Rate 110 H 123 H 113 H Blood Pressure 173/105 H 120/58 L BP Systolic 173 120 BP Diastolic 105 58 Pulse Ox 100 Physical Exam Const alert, oriented x3, no apparent distress, average body habitus, healthy appearing and well nourished HEENT normocephalic and moist oral mucous membranes Head and Scalp: atraumatic Eyes PERRL and EOMs intact bilaterally Neck full ROM Resp normal respiratory effort, no retractions and no use of accessory muscles Cardio regular rate and regular rhythm GI soft to palpation, non-tender and non-distended Extremity normal to inspection and full ROM Skin no rashes or lesions noted Neuro no focal motor deficits and no sensory deficits noted Psych mental status grossly normal, affect normal, speech normal and activity/motor behavior normal Assessment & Plan (1) Active labor: PLAN: Patient presents IAL, plan expectant management for , pitocin/AROM PRN if needed. Pain management: plans epidural. GBS positive plan IV PCN. Management of any complications: none I have reviewed the [facility] and made any clinically relevant updates. (2) Positive GBS test: COMMENT: PCN in labor (3) 35 weeks gestation of : COMMENT: COVID test ordered 05/26/20 (sched 06/18 at 1:30pm) NEGATIVE (4) History of tetanus, diphtheria, and acellular pertussis booster vaccination (Tdap): COMMENT: 04/09/20 (5) Anxiety and depression: COMMENT: is doing well- no medication (6) Rh negative state in antepartum period: COMMENT: rhogam 04/09 (7) Supervision of other normal : COMMENT: PRR YESSENIA 05/29/20 girl PC: Ashly Bermudez Spouse: Fidel (8) : QUALIFIERS: Weeks of gestation: 39 weeks Qualified Code(s): Z3A.39 - 39 weeks gestation of COMMENT: carrier- neg , declines AFP, genetics low risk NL anatomy (9) Breast lump on right side at 10 o'clock position: COMMENT: discused imaging- has been stable for years so unless no change may wait until after
--- NOTE | 2020-06-25 06:49 | OP.PCM_ITS ---
Problems Associated Problem List Diagnoses (1) Active labor: (2) Positive GBS test: (3) 35 weeks gestation of : (4) History of tetanus, diphtheria, and acellular pertussis booster vaccination (Tdap): (5) Anxiety and depression: (6) Rh negative state in antepartum period: (7) Supervision of other normal : (8) : (9) Breast lump on right side at 10 o'clock position: Report of Operation (OB) Information YESSENIA Calculator Estimated Delivery Date Method Current WG Current Estimate 06/27/20 Ultrasound #1 39w 5d Other Estimates 05/29/20 LMP (Certain) 43w 6d Final YESSENIA: 06/27/20 Gestational age: 39 Weeks and 5 Days Operative Information Date of Procedure: 06/25/20 Pre-Operative Diagnosis: Term , active labor Post-Operative Diagnosis: Same Type of Anesthesia: Epidural Induction Maternal Presentation: Active Labor Maternal Presentation: 29-year-old G3, P2 at 39 weeks gestation admitted in active labor. Patient made cervical change to complete dilation within 3 hours of admission without augmentation. Findings Description of Procedure: Patient began pushing and delivered the head in the CONCHITA presentation. The head was delivered atraumatically and no nuchal cord was noted. The anterior and posterior shoulders delivered without complication followed by the rest of the and the was placed on the maternal abdomen. Delayed cord clamping was employed for approximately 60 seconds. Cord was clamped and cut and gentle traction was applied to the cord and the placenta delivered spontaneously immediately following it was noted to be intact with three-vessel cord. The perineum and vagina were inspected and no laceration was noted. EBL was 150 cc. Patient and infant tolerated delivery well. Procedure Performed: Spontaneous Vaginal Delivery Presentation: Positive for Vertex and CONCHITA Amniotic Membrane Rupture Type: Spontaneous Amniotic Fluid Description: Clear Placental Delivery Description: Spontaneous Placenta Disposition: [facility] Cord Vessel Description: 3 Vessels Cord Entanglement: None Infant Gender: Female Delayed Cord Clamping: Yes Esitmated Blood Loss (mL): 150 Medications Given Medications Given After Delivery: IV Pitocin Post Vaginal Delivery Episiotomy Description: None Laceration: None Multi Select Codes Urinary/Genital Urinary/Genital CPT Codes: 64618 Vaginal Delivery [facility]
[2020-06-25] MEDS: Ibuprofen 600 MG Tablet PO (08:22)
[2020-06-25] MEDS: Methylergonovine 0.2 MG/ML Ampul IM (10:11)
[2020-06-25] MEDS: Oxytocin 30 units/NS 500 ml 30 UNITS/500 ML IV.SOLN 167 UNITS IV (10:15)
[2020-06-25] MEDS: miSOPROStol 200 MCG Tablet 1000 MCG PO (10:18)
--- NOTE | 2020-06-25 11:00 | NURSING ---
Pt continued to be monitored after recovery every 15 min for uterine displacement. Bleeding small, but clots expressed x2. Pt voiding small amounts. At 0945 uterus noted to be +3 right of midline. Lewis cath then inserted for immediate return of 700cc clear urine. Dr Garcia notified at 1000 and here in room at 1005. Orders received for methergine and pitocin. Bi manual massage and Ultrasound performed per Dr Garcia. A few more clots noted. Cytotec po then ordered. See APR.
[2020-06-25] MEDS: Acetaminophen 500 MG Tablet 1000 MG PO (12:21)
[2020-06-25] MEDS: 0.9% Saline Lock 10 ML Syringe IV (14:21)
--- NOTE | 2020-06-25 17:33 | NURSING ---
fundal check with uterus to right of midline. firm and at the umbilicus. Patient up to the bathroom to void. pt voided 400cc. fundus a little more midline but still slightly off to the right. continues to be firm. not bleeding or clots noted.
[2020-06-26] VITALS (7 sets, daily range): BP systolic 111–126; BP diastolic 59–73; PULSE 62–79; RESP 16–18; TEMP 36.2–36.8
[2020-06-26] MEDS: Ibuprofen 600 MG Tablet PO (03:41)
--- NOTE | 2020-06-26 09:37 | NURSING ---
0845 (Late Entry) pt states she does not feel the sensation to void, however she is voiding every couple of hours to make sure she empties her bladder
--- NOTE | 2020-06-26 10:01 | PCM.PN.OB ---
Subjective Subjective: Patient doing well without complaints. Tolerating PO. Ambulating and voiding without difficulty. Feeding well. Denies chest pain, shortness of breath, calf pain/swelling, fevers, chills, lightheadedness. Objective Data Objective Data Vital Signs: Vital Signs Temp Pulse Resp BP Pulse Ox 97.2 F L 71 16 126/66 H 97 06/26/20 08:53 06/26/20 08:53 06/26/20 08:45 06/26/20 08:53 06/25/20 10:45 Oxygen Delivery Method Room Air Weight: 182 lb 9.6 oz Body Mass Index (BMI) 31.3 Intake & Output: Intake and Output for Last 24 Hours 06/24/20 06/25/20 06/26/20 23:59 23:59 23:59 Intake Total 1956.67 / 1956.67 Output Total 1225 / 1225 Balance 731.67 / 731.67 Lab / Micro Data Result Diagrams: 06/25/20 03:00 Labs: Laboratory Results - last 24 hr 06/25/20 09:50 Screen NEGATIVE Baby's Blood Type O POSITIVE Baby's SHAW[place] NEGATIVE ROS Constitutional Constitutional: Denies fever(s) Cardiovascular Cardiovascular: Denies chest pain, dyspnea or lightheadedness Gastrointestinal Gastrointestinal: Reports abdominal pain; Denies constipation or diarrhea Neurologic Neurologic: Denies dizziness or headache(s) Physical Exam Const alert, oriented x3, no apparent distress, average body habitus, healthy appearing and well nourished HEENT normocephalic Head and Scalp: atraumatic Eyes PERRL and EOMs intact bilaterally Neck full ROM Lymph Lymphatic: no lymphadenopathy noted Resp normal respiratory effort, no retractions and no use of accessory muscles Cardio regular rate GI soft to palpation, non-tender and non-distended Palpation: other Other Details: fundus firm Extremity normal to inspection and no clubbing, cyanosis or edema Skin no rashes or lesions noted Neuro no focal motor deficits and no sensory deficits noted Psych mental status grossly normal, affect normal and speech normal Assessment & Plan (1) (spontaneous vaginal delivery): PLAN: s/p PPD # 1 1. routine post delivery care 2. breast feeding- support given 3. rh positive 4. rubella immune 5. urinary retention- not feeling sensation to void but able to void, will monitor this am and if voiding without difficulty will DC today
--- NOTE | 2020-06-26 10:07 | PCM.DC ---
Discharge Instructions Diet Discharge Diet: No restrictions Activity Discharge Activity: Return to Normal Activity, May not drive while taking narcotic pain medications. and May Shower May resume sexual activity in: 4-6 weeks Dressing / Incision Call your doctor if your incision/area has: Continuous Slow Oozing, Sudden Increased Bleeding, Increased Pain/ Swelling, Increased Redness and Foul Smelling Discharge Follow Up Care Please Follow Up With: Joanna Garcia MD When: Call to make an appointment with your doctor in 6 weeks. Test Results: Test results from this visit will be discussed in further detail at your follow-up appointment, if applicable. Discharge Plan Admission Admit Date/Time: 06/25/20 02:42 Primary Reason for Your Visit: Active labor Attending Provider: Joanna Garcia Primary Care Provider: Eve Owens Primary Instructions Patient Instructions: After a Vaginal Discharge Orders/Prescriptions Prescriptions: New naproxen [naproxen] 500 MG tablet 500 mg PO BID PRN PRN (Reason: Pain) Qty: 30 RF: 1 Continued DHA 200 mg capsule 200 mg PO DAILY RF: 0 Referrals / Follow Up: Care Physician,Eve Primary [Primary Care Provider] - Disposition Disposition (needs filled in before D/C Order can be placed): Home, self care
[2020-06-26] MEDS: Senna/Docusate Sodium 1 Tablet PO (16:44)
== END 2020-06-26 16:11 | disposition home or self-care (01) | DRG 807 ==
LOC: WPOUT 02:44 → WP 02:44
PROVIDERS: Admitting Provider Obstetrics & Gynecology; Referring Provider Obstetrics & Gynecology; Visit Provider Obstetrics & Gynecology
DX: O99.824 Streptococcus B carrier state complicating childbirth (principal); Z37.0 Single live birth; Z3A.39 39 weeks gestation of pregnancy; O26.893 Other specified pregnancy related conditions, third trimester; Z87.891 Personal history of nicotine dependence; R33.9 Retention of urine, unspecified
CPT/HCPCS: 59025; 59050; 85025; 85461; 86850; 86900; 86901; 90384; 99218; J7120; A4216; G0378; J2790